=== PATIENT | male | born 1965 | race Caucasian/White ===

== ENCOUNTER 2022-02-26 07:32 | Inpatient (IN) | payer MEDICAID ==
[2022-02-26] MEDS ORDERED: Sodium Chloride 0.9% 10 ML Syringe FLUSH PRN (07:43)
[2022-02-26] MEDS ORDERED: Sodium Chloride 0.9% 1,000 ML IV SCH (07:45)
[2022-02-26 08:11] LABS: ESTIMATED GFR 104 mL/min (>60)
[2022-02-26] MEDS ORDERED: Albuterol/Ipratropium 3.0-0.5 MG/3 ML Neb Soln NEB ONE (08:49)
[2022-02-26] MEDS ORDERED: LORazepam 2 MG/ML SDV IVPUSH ONE (08:49)
[2022-02-26] MEDS ORDERED: methylPREDNISolone Sodium Succinate 125 MG/2 ML SDV IVPUSH STA (08:50)
[2022-02-26 08:58] LABS: CORONAVIRUS COVID-19 NAA NEGATIVE (NEGATIVE)
[2022-02-26] MEDS ORDERED: Ondansetron 4 MG/2 ML SDV IV PRN (10:16)
[2022-02-26] MEDS ORDERED: Acetaminophen 325 MG Tab PO PRN (10:16)
[2022-02-26] MEDS ORDERED: LORazepam 1 MG Tab PO SCH (10:29)
[2022-02-26] MEDS ORDERED: Thiamine 200 MG/2 ML MDV IVPUSH STA (10:35)
[2022-02-26] MEDS ORDERED: LORazepam 2 MG/ML SDV IV SCH (11:00)
[2022-02-26] MEDS: Sodium Chloride 0.9% 1,000 ML IV SCH ×2 (11:15→21:54)
[2022-02-26] MEDS: Enoxaparin 40 MG/0.4 ML Syringe SUBCUT SCH (11:46)
[2022-02-26] MEDS: Multivitamin Tab PO SCH (11:46)
[2022-02-26] MEDS: Pantoprazole 40 MG Vial IVPUSH SCH (15:01)
[2022-02-27 07:19] LABS: ESTIMATED GFR 100 mL/min (>60)
[2022-02-27] MEDS: Sodium Chloride 0.9% 1,000 ML IV SCH ×2 (08:08→18:25)
[2022-02-27] MEDS: Multivitamin Tab PO SCH (10:33)
[2022-02-27] MEDS: Losartan 25 MG Tab PO SCH ×2 (10:33→20:17)
[2022-02-27] MEDS: Enoxaparin 40 MG/0.4 ML Syringe SUBCUT SCH (10:35)
[2022-02-27] MEDS: Pantoprazole 40 MG Vial IVPUSH SCH (13:18)
[2022-02-28] MEDS: Sodium Chloride 0.9% 1,000 ML IV SCH ×2 (04:43→14:55)
[2022-02-28 06:48] LABS: ESTIMATED GFR 79 mL/min (>60)
[2022-02-28] MEDS: Losartan 25 MG Tab PO SCH (08:16)
[2022-02-28] MEDS: Multivitamin Tab PO SCH (08:16)
[2022-02-28] MEDS ORDERED: Albuterol/Ipratropium 3.0-0.5 MG/3 ML Neb Soln NEB PRN (09:19)
[2022-02-28] MEDS ORDERED: Iopamidol 755 Mg/ML 75 ML Bottle IV ONE (09:55)
[2022-02-28] MEDS: Potassium Chloride 20 MEQ Tab.ER PO SCH ×2 (10:00→20:15)
[2022-02-28] MEDS: Folic Acid/Vitamin B Complex With C Cap PO SCH (11:01)
[2022-02-28] MEDS: Enoxaparin 40 MG/0.4 ML Syringe SUBCUT SCH (11:02)
[2022-02-28] MEDS: Pantoprazole 40 MG Vial IVPUSH SCH (13:10)
[2022-03-01] MEDS: Sodium Chloride 0.9% 1,000 ML IV SCH (00:01)
[2022-03-01 07:02] LABS: ESTIMATED GFR 100 mL/min (>60)
[2022-03-01 07:12] LABS: HEMOGLOBIN A1C 5.5 % (<5.7)
[2022-03-01] MEDS: Potassium Chloride 20 MEQ Tab.ER PO SCH ×2 (08:53→20:06)
[2022-03-01] MEDS: Multivitamin Tab PO SCH (08:53)
[2022-03-01] MEDS: Enoxaparin 40 MG/0.4 ML Syringe SUBCUT SCH (10:23)
[2022-03-01] MEDS: Folic Acid/Vitamin B Complex With C Cap PO SCH (10:57)
[2022-03-01] MEDS: Pantoprazole 40 MG Tab.CR PO SCH (11:33)
[2022-03-02] MEDS: Levothyroxine 25 MCG Tab PO SCH (05:24)
[2022-03-02] MEDS ORDERED: Polyvinyl Alcohol 1.4% Ophth Soln 15 ML Bottle EYEBOTH PRN (09:35)
[2022-03-02] MEDS: Folic Acid/Vitamin B Complex With C Cap PO SCH (09:58)
[2022-03-02] MEDS: Potassium Chloride 20 MEQ Tab.ER PO SCH ×2 (09:58→20:24)
[2022-03-02] MEDS: Enoxaparin 40 MG/0.4 ML Syringe SUBCUT SCH (09:59)
[2022-03-02] MEDS: Multivitamin Tab PO SCH (09:59)
[2022-03-02] MEDS: Pantoprazole 40 MG Tab.CR PO SCH (12:45)
[2022-03-03] MEDS: Levothyroxine 25 MCG Tab PO SCH (05:02)
[2022-03-03] MEDS: Potassium Chloride 20 MEQ Tab.ER PO SCH ×2 (08:30→21:35)
[2022-03-03] MEDS: Folic Acid/Vitamin B Complex With C Cap PO SCH (08:31)
[2022-03-03] MEDS: Enoxaparin 40 MG/0.4 ML Syringe SUBCUT SCH (09:41)
[2022-03-03] MEDS: Pantoprazole 40 MG Tab.CR PO SCH (11:31)
[2022-03-04] MEDS: Levothyroxine 25 MCG Tab PO SCH (05:40)
[2022-03-04] MEDS: Potassium Chloride 20 MEQ Tab.ER PO SCH (08:25)
[2022-03-04] MEDS: Folic Acid/Vitamin B Complex With C Cap PO SCH (08:25)
[2022-03-04] MEDS: Pantoprazole 40 MG Tab.CR PO SCH (11:20)
[2022-03-04] MEDS: Enoxaparin 40 MG/0.4 ML Syringe SUBCUT SCH (11:20)
== END 2022-03-04 18:15 | disposition home or self-care (01) | DRG 392 ==
LOC: FB.ED 07:32 → FB.MS 10:47 → OBSVTOIN 03-01 10:34
PROVIDERS: ADMIT Student in an Organized Health Care Education/Training Program; ATTEND Family Medicine
DX: K52.9 Noninfective gastroenteritis and colitis, unspecified (principal); E87.1 Hypo-osmolality and hyponatremia; F10.929 Alcohol use, unspecified with intoxication, unspecified; Z20.822 Contact with and (suspected) exposure to COVID-19; E66.01 Morbid (severe) obesity due to excess calories; E87.6 Hypokalemia; I10 Essential (primary) hypertension; R74.8 Abnormal levels of other serum enzymes; Z79.890 Hormone replacement therapy; Z79.899 Other long term (current) drug therapy; Z87.01 Personal history of pneumonia (recurrent); Z86.19 Personal history of other infectious and parasitic diseases; Z68.39 Body mass index [BMI] 39.0-39.9, adult
CPT/HCPCS: 0241U; 36415; 70450; 71045; 71260; 80053; 80307; 83036; 83735; 83880; 84100; 84443; 84484; 85025; 85379; 85610; 90686; 93005; 94640; 96361; 96372; 96374; 96375; 96376; 97161-GP; 97165-GO; 97530-GO; 97530-GP; 99285-25; A9270-GY; C9113; G0378; J1650; J2060; J2930; J3411; J7030; J7620; Q9967

== ENCOUNTER 2022-07-01 16:05 | Emergency (ER) | payer MEDICAID ==
[2022-07-01] MEDS ORDERED: Ondansetron 4 MG Tab.DIS PO ONE (16:06)
[2022-07-01] MEDS ORDERED: Thiamine 200 MG/2 ML MDV IVPUSH ONE (16:35)
[2022-07-01] MEDS ORDERED: LORazepam 2 MG/ML SDV IVPUSH STA (16:36)
[2022-07-01] MEDS ORDERED: Ondansetron 4 MG/2 ML SDV IVPUSH ONE ×2 (16:36→19:17)
[2022-07-01] MEDS ORDERED: Sodium Chloride 0.9% 1,000 ML IV SCH (16:45)
[2022-07-01] MEDS ORDERED: Dextrose 5%-0.9% NaCl 1,000 ML IV SCH (16:45)
[2022-07-01] MEDS: Sodium Chloride 0.9% 10 ML Syringe FLUSH PRN ×5 (16:47→19:22)
[2022-07-01 17:13] LABS: ESTIMATED GFR 100 mL/min (>60)
[2022-07-01] MEDS ORDERED: Potassium Chloride 20 MEQ Tab.ER PO ONE (17:51)
[2022-07-01] MEDS ORDERED: Magnesium Sulfate/Water 2 GM in Premix Bag 1 BAG IV ONE (17:53)
[2022-07-01] MEDS ORDERED: Magnesium Sulfate/Water 50 ML ONE (18:16)
== END 2022-07-01 21:23 | disposition home or self-care (01) ==
LOC: FB.ED 16:05
DX: F10.20 Alcohol dependence, uncomplicated (principal); E87.6 Hypokalemia; E83.42 Hypomagnesemia; I10 Essential (primary) hypertension; Y90.0 Blood alcohol level of less than 20 mg/100 ml
CPT/HCPCS: 36415; 71045; 80053; 80307; 82150; 83690; 83735; 84100; 84132; 84443; 85025; 96361; 96365; 96366; 96375; 96376; 99284-25; A9270-GY; J2060; J2405; J3411; J3475; J3490; Q0162

== ENCOUNTER 2022-08-11 03:52 | Emergency (ER) | payer MEDICAID ==
[2022-08-11] MEDS: Sodium Chloride 0.9% 1,000 ML IV ONE (04:37)
[2022-08-11] MEDS: Ondansetron 4 MG/2 ML SDV IVPUSH ONE ×2 (04:39→09:43)
[2022-08-11 05:06] LABS: BLOOD UREA NITROGEN,BUN 11 mg/dL (7-18); CALCIUM 9.6 mg/dL (8.6-10.2); CARBON DIOXIDE,CO2 16 mmol/L (21-32); CHLORIDE,CL 96 mmol/L (100-110); CREATININE 1.1 mg/dL (0.70-1.30); ESTIMATED GFR 79 mL/min (>60); GLUCOSE RANDOM 137 mg/dL (80-116); POTASSIUM,K 3.8 mmol/L (3.5-5.3); SODIUM,NA 140 mmol/L (135-145)
[2022-08-11 05:09] LABS: BASOPHILS PERCENT AUTO 0.5 % (0.3-3.8); EOSINOPHILS PERCENT AUTO 0.2 % (0.1-6.8); HEMATOCRIT 40.6 % (38.3-50.1); HEMOGLOBIN 13.4 g/dL (12.9-17.7); LYMPHOCYTES ABSOLUTE AUTO 0.4 x10-3/uL (0.5-4.5); LYMPHOCYTES PERCENT AUTO 6.4 % (15.8-45.3); MEAN CORPUSCULAR HEMOGLOBIN 36.3 pg (27.0-33.3); MEAN CORPUSCULAR HGB CONC 32.9 g/dL (28.7-35.3); MEAN CORPUSCULAR VOLUME 110.3 fL (80.8-98.7); MEAN PLATELET VOLUME 8.6 fL (6.7-11.0); MONOCYTES ABSOLUTE AUTO 0.6 x10-3/uL (0.0-1.2); NEUTROPHILS ABSOLUTE AUTO 5.7 x10-3/uL (1.7-6.9); NEUTROPHILS PERCENT AUTO 83.9 % (40.3-71.8); PLATELET COUNT,PLT 111 x10(3)uL (117-477); RED BLOOD CELL COUNT 3.69 x10(6)uL (3.90-5.90); RED CELL DISTRIBUTION WIDTH 15.4 % (12.4-15.0); WHITE BLOOD CELL COUNT,WBC 6.8 x10-3/uL (3.2-10.1)
[2022-08-11 05:12] LABS: A/G RATIO 1.1; ALANINE AMINOTRANSFERASE,ALT 68 U/L (12-36); ALBUMIN 4.2 g/dL (3.5-5.2); ALKALINE PHOSPHATASE 113 IU/L (56-112); ASPARTATE AMNIOTRANSFERASE,AST 99 IU/L (5-25); BILIRUBIN TOTAL 1.5 mg/dL (0.1-1.3)
[2022-08-11] MEDS: Sodium Chloride 0.9% 1,000 ML IV SCH (06:46)
[2022-08-11] MEDS: LORazepam 2 MG/ML SDV IVPUSH ONE (06:59)
[2022-08-11] MEDS: Thiamine 200 MG/2 ML MDV IVPUSH ONE (06:59)
[2022-08-11] MEDS: Metoclopramide 10 MG/2 ML SDV IVPUSH ONE (07:03)
[2022-08-11] MEDS: Pantoprazole 40 MG Vial IVPUSH ONE (07:07)
== END 2022-08-11 10:20 | disposition home or self-care (01) ==
LOC: FB.ED 03:52
DX: K70.9 Alcoholic liver disease, unspecified (principal); F10.20 Alcohol dependence, uncomplicated; I10 Essential (primary) hypertension; Z79.899 Other long term (current) drug therapy
CPT/HCPCS: 36415; 80053; 80307; 83735; 85025; 96361; 96374; 96375; 96376; 99284; C9113; J2060; J2405; J2765; J3411; J7030

== ENCOUNTER 2022-12-09 19:53 | Inpatient (IN) | payer MEDICAID ==
[2022-12-09] MEDS ORDERED: Ondansetron 4 MG/2 ML SDV IVPUSH ONE (19:57)
[2022-12-09] MEDS ORDERED: Sodium Chloride 0.9% 1,000 ML IV SCH (20:00)
[2022-12-09] MEDS: fentaNYL 100 MCG/2 ML SDV IVPUSH PRN (20:22)
[2022-12-09 20:44] LABS: BASOPHILS PERCENT AUTO 0.2 % (0.3-3.8); EOSINOPHILS PERCENT AUTO 0.1 % (0.1-6.8); HEMATOCRIT 48.1 % (38.3-50.1); HEMOGLOBIN 15.9 g/dL (12.9-17.7); LYMPHOCYTES ABSOLUTE AUTO 0.2 x10-3/uL (0.5-4.5); LYMPHOCYTES PERCENT AUTO 2.6 % (15.8-45.3); MEAN CORPUSCULAR HEMOGLOBIN 32.9 pg (27.0-33.3); MEAN CORPUSCULAR HGB CONC 33.1 g/dL (28.7-35.3); MEAN CORPUSCULAR VOLUME 99.7 fL (80.8-98.7); MEAN PLATELET VOLUME 8.9 fL (6.7-11.0); MONOCYTES ABSOLUTE AUTO 0.8 x10-3/uL (0.0-1.2); MONOCYTES PERCENT AUTO 11.4 % (5.5-15.2); NEUTROPHILS PERCENT AUTO 85.7 % (40.3-71.8); PLATELET COUNT,PLT 126 x10(3)uL (117-477); RED BLOOD CELL COUNT 4.82 x10(6)uL (3.90-5.90); WHITE BLOOD CELL COUNT,WBC 7.6 x10-3/uL (3.2-10.1)
[2022-12-09 20:52] LABS: TROPONIN I 13.9 pg/mL (4.0-60.3)
[2022-12-09] MEDS ORDERED: Iopamidol 755 Mg/ML 100 ML Bottle IV ONE (20:52)
[2022-12-09 20:54] LABS: A/G RATIO 0.9; ALANINE AMINOTRANSFERASE,ALT 63 U/L (12-36); ALBUMIN 3.9 g/dL (3.5-5.2); ALKALINE PHOSPHATASE 122 IU/L (56-112); ASPARTATE AMNIOTRANSFERASE,AST 95 IU/L (5-25); BILIRUBIN TOTAL 1.5 mg/dL (0.1-1.3); CALCIUM 9.4 mg/dL (8.6-10.2); CHLORIDE,CL 91 mmol/L (100-110); EST CRCL DRUG DOSING (CG) 33.66 mL/min; ESTIMATED GFR 29 mL/min (>60); GLUCOSE RANDOM 256 mg/dL (80-116); POTASSIUM,K 4.5 mmol/L (3.5-5.3); PROTEIN TOTAL,TP 8.1 g/dL (6.0-8.0); SODIUM,NA 131 mmol/L (135-145)
[2022-12-09 21:14] LABS: BLOOD UREA NITROGEN,BUN 11 mg/dL (7-18); BUN/CREATININE RATIO 4.4 (9-20); CARBON DIOXIDE,CO2 7 mmol/L (21-32); CREATININE 2.5 mg/dL (0.70-1.30); ETHANOL BLOOD MEDICAL < 0.03 % (<0.03); LIPASE > 1500 U/L (16-77)
[2022-12-09] MEDS ORDERED: HYDROmorphone 2 MG/ML SDV IVPUSH ONE (21:14)
[2022-12-09] MEDS: HYDROmorphone 2 MG/ML SDV IVPUSH ONE ×2 (21:19→21:33)
[2022-12-09] MEDS ORDERED: Naloxone 0.4 MG/ML SDV IVPUSH PRN (21:34)
[2022-12-09] MEDS ORDERED: Albuterol/Ipratropium 3.0-0.5 MG/3 ML Neb Soln INH PRN (22:14)
[2022-12-09] MEDS ORDERED: LORazepam 2 MG/ML SDV IVPUSH PRN (22:14)
[2022-12-09] MEDS ORDERED: Ondansetron 4 MG/2 ML SDV IV PRN (22:14)
[2022-12-09] MEDS ORDERED: Thiamine 200 MG/2 ML MDV IVPUSH ONE (22:14)
[2022-12-09] MEDS ORDERED: Enoxaparin 40 MG/0.4 ML Syringe SUBCUT SCH (22:15)
[2022-12-09] MEDS: Sodium Chloride 0.9% 1,000 ML IV SCH (22:52)
[2022-12-09] MEDS: Pantoprazole 40 MG Vial IVPUSH SCH (22:53)
[2022-12-09] MEDS: HYDROmorphone 2 MG/ML SDV IVPUSH PRN (23:24)
[2022-12-10] MEDS: HYDROmorphone 2 MG/ML SDV IVPUSH PRN ×5 (02:05→21:11)
[2022-12-10] MEDS: Sodium Chloride 0.9% 1,000 ML IV SCH ×4 (05:41→20:46)
[2022-12-10 06:29] LABS: HEMATOCRIT 44.5 % (38.3-50.1); HEMOGLOBIN 14.8 g/dL (12.9-17.7); MEAN CORPUSCULAR HEMOGLOBIN 32.3 pg (27.0-33.3); MEAN CORPUSCULAR HGB CONC 33.2 g/dL (28.7-35.3); MEAN CORPUSCULAR VOLUME 97.3 fL (80.8-98.7); MEAN PLATELET VOLUME 8.9 fL (6.7-11.0); PLATELET COUNT,PLT 92 x10(3)uL (117-477); RED BLOOD CELL COUNT 4.58 x10(6)uL (3.90-5.90); RED CELL DISTRIBUTION WIDTH 14.5 % (12.4-15.0); WHITE BLOOD CELL COUNT,WBC 5.2 x10-3/uL (3.2-10.1)
[2022-12-10 06:38] LABS: A/G RATIO 0.9; ALANINE AMINOTRANSFERASE,ALT 55 U/L (12-36); ALBUMIN 3.3 g/dL (3.5-5.2); ALKALINE PHOSPHATASE 98 IU/L (56-112); ASPARTATE AMNIOTRANSFERASE,AST 103 IU/L (5-25); BILIRUBIN TOTAL 1.7 mg/dL (0.1-1.3); BLOOD UREA NITROGEN,BUN 16 mg/dL (7-18); BUN/CREATININE RATIO 5.2 (9-20); CARBON DIOXIDE,CO2 18 mmol/L (21-32); CHLORIDE,CL 97 mmol/L (100-110); EST CRCL DRUG DOSING (CG) 27.15 mL/min; ESTIMATED GFR 23 mL/min (>60); GLUCOSE RANDOM 332 mg/dL (80-116); MAGNESIUM 1.4 mg/dL (1.8-2.5); POTASSIUM,K 4.9 mmol/L (3.5-5.3); PROTEIN TOTAL,TP 6.8 g/dL (6.0-8.0); SODIUM,NA 132 mmol/L (135-145)
[2022-12-10 06:41] LABS: CREATININE 3.1 mg/dL (0.70-1.30)
[2022-12-10 07:07] LABS: BAND PERCENT MAN 4 % (0-6); LYMPHOCYTES PERCENT MAN 3 % (13-37); MONOCYTES PERCENT MAN 9 % (4-12); SEG NEUTROPHILS PERCENT MAN 84 % (46-82)
[2022-12-10] MEDS: Pantoprazole 40 MG Vial IVPUSH SCH ×2 (10:11→21:17)
[2022-12-10] MEDS ORDERED: Enoxaparin 30 MG/0.3 ML Syringe SUBCUT SCH (21:30)
[2022-12-11] MEDS: Sodium Chloride 0.9% 1,000 ML IV SCH ×5 (00:54→21:24)
[2022-12-11] MEDS: fentaNYL 100 MCG/2 ML SDV IVPUSH PRN ×2 (00:55→06:41)
[2022-12-11] MEDS: HYDROmorphone 2 MG/ML SDV IVPUSH PRN (02:44)
[2022-12-11 06:21] LABS: HEMOGLOBIN 13.7 g/dL (12.9-17.7); MEAN CORPUSCULAR HEMOGLOBIN 32.4 pg (27.0-33.3); MEAN CORPUSCULAR HGB CONC 33.3 g/dL (28.7-35.3); MEAN CORPUSCULAR VOLUME 97.4 fL (80.8-98.7); MEAN PLATELET VOLUME 9.9 fL (6.7-11.0); PLATELET COUNT,PLT 68 x10(3)uL (117-477); RED BLOOD CELL COUNT 4.21 x10(6)uL (3.90-5.90); RED CELL DISTRIBUTION WIDTH 15.2 % (12.4-15.0)
[2022-12-11 06:33] LABS: A/G RATIO 0.8; ALANINE AMINOTRANSFERASE,ALT 42 U/L (12-36); ALBUMIN 2.8 g/dL (3.5-5.2); ALKALINE PHOSPHATASE 88 IU/L (56-112); ASPARTATE AMNIOTRANSFERASE,AST 73 IU/L (5-25); BILIRUBIN TOTAL 1.3 mg/dL (0.1-1.3); BLOOD UREA NITROGEN,BUN 21 mg/dL (7-18); BUN/CREATININE RATIO 10.5 (9-20); CALCIUM 8.2 mg/dL (8.6-10.2); CARBON DIOXIDE,CO2 19 mmol/L (21-32); CHLORIDE,CL 103 mmol/L (100-110); EST CRCL DRUG DOSING (CG) 42.08 mL/min; ESTIMATED GFR 38 mL/min (>60); GLUCOSE RANDOM 267 mg/dL (80-116); POTASSIUM,K 4.2 mmol/L (3.5-5.3); PROTEIN TOTAL,TP 6.3 g/dL (6.0-8.0); SODIUM,NA 137 mmol/L (135-145)
[2022-12-11 06:36] LABS: BAND PERCENT MAN 10 % (0-6); LYMPHOCYTES PERCENT MAN 14 % (13-37); MONOCYTES PERCENT MAN 8 % (4-12); SEG NEUTROPHILS PERCENT MAN 68 % (46-82)
[2022-12-11] MEDS ORDERED: HYDROmorphone 2 MG Tab PO PRN (08:01)
[2022-12-11] MEDS ORDERED: oxyCODONE 5 MG Tab PO SCH (08:30)
[2022-12-11] MEDS: Pantoprazole 40 MG Vial IVPUSH SCH ×2 (10:24→21:18)
[2022-12-11] MEDS: oxyCODONE 5 MG Tab PO SCH ×3 (13:19→21:17)
[2022-12-12] MEDS: oxyCODONE 5 MG Tab PO SCH ×4 (00:43→15:00)
[2022-12-12] MEDS: Sodium Chloride 0.9% 1,000 ML IV SCH ×2 (04:46→17:17)
[2022-12-12 06:22] LABS: BASOPHILS PERCENT AUTO 0.1 % (0.3-3.8); EOSINOPHILS ABSOLUTE AUTO 0.1 x10-3/uL (0.0-0.6); EOSINOPHILS PERCENT AUTO 0.8 % (0.1-6.8); HEMATOCRIT 36.7 % (38.3-50.1); HEMOGLOBIN 12.3 g/dL (12.9-17.7); LYMPHOCYTES ABSOLUTE AUTO 0.5 x10-3/uL (0.5-4.5); LYMPHOCYTES PERCENT AUTO 6.8 % (15.8-45.3); MEAN CORPUSCULAR HEMOGLOBIN 32.2 pg (27.0-33.3); MEAN CORPUSCULAR HGB CONC 33.4 g/dL (28.7-35.3); MEAN CORPUSCULAR VOLUME 96.3 fL (80.8-98.7); MEAN PLATELET VOLUME 9.1 fL (6.7-11.0); MONOCYTES ABSOLUTE AUTO 0.6 x10-3/uL (0.0-1.2); MONOCYTES PERCENT AUTO 9.7 % (5.5-15.2); NEUTROPHILS ABSOLUTE AUTO 5.5 x10-3/uL (1.7-6.9); NEUTROPHILS PERCENT AUTO 82.6 % (40.3-71.8); PLATELET COUNT,PLT 81 x10(3)uL (117-477); RED BLOOD CELL COUNT 3.81 x10(6)uL (3.90-5.90); WHITE BLOOD CELL COUNT,WBC 6.6 x10-3/uL (3.2-10.1)
[2022-12-12 06:32] LABS: A/G RATIO 0.7; ALANINE AMINOTRANSFERASE,ALT 40 U/L (12-36); ALBUMIN 2.6 g/dL (3.5-5.2); ALKALINE PHOSPHATASE 88 IU/L (56-112); ASPARTATE AMNIOTRANSFERASE,AST 46 IU/L (5-25); BILIRUBIN TOTAL 1.4 mg/dL (0.1-1.3); BLOOD UREA NITROGEN,BUN 17 mg/dL (7-18); BUN/CREATININE RATIO 13.1 (9-20); CARBON DIOXIDE,CO2 21 mmol/L (21-32); CHLORIDE,CL 101 mmol/L (100-110); CREATININE 1.3 mg/dL (0.70-1.30); EST CRCL DRUG DOSING (CG) 64.73 mL/min; ESTIMATED GFR 64 mL/min (>60); GLUCOSE RANDOM 229 mg/dL (80-116); POTASSIUM,K 3.7 mmol/L (3.5-5.3); PROTEIN TOTAL,TP 6.1 g/dL (6.0-8.0); SODIUM,NA 134 mmol/L (135-145)
[2022-12-12] MEDS ORDERED: Sodium Chloride 0.9% 1,000 ML IV SCH (08:00)
[2022-12-12] MEDS ORDERED: Sodium Chloride 0.9% 1,000 ML IV ONE (09:55)
[2022-12-12] MEDS: Pantoprazole 40 MG Vial IVPUSH SCH ×2 (11:18→22:05)
[2022-12-12] MEDS: oxyCODONE 5 MG Tab PO PRN ×2 (15:18→20:51)
[2022-12-13] MEDS: Sodium Chloride 0.9% 1,000 ML IV SCH (00:20)
[2022-12-13] MEDS ORDERED: Furosemide 40 MG/4 ML VIAL IVPUSH ONE (02:30)
[2022-12-13] MEDS: oxyCODONE 5 MG Tab PO PRN ×4 (02:40→19:06)
[2022-12-13 06:43] LABS: BASOPHILS PERCENT AUTO 0.2 % (0.3-3.8); EOSINOPHILS ABSOLUTE AUTO 0.1 x10-3/uL (0.0-0.6); EOSINOPHILS PERCENT AUTO 1.6 % (0.1-6.8); HEMATOCRIT 36.1 % (38.3-50.1); HEMOGLOBIN 12.1 g/dL (12.9-17.7); LYMPHOCYTES ABSOLUTE AUTO 0.5 x10-3/uL (0.5-4.5); LYMPHOCYTES PERCENT AUTO 8.2 % (15.8-45.3); MEAN CORPUSCULAR HEMOGLOBIN 31.9 pg (27.0-33.3); MEAN CORPUSCULAR HGB CONC 33.4 g/dL (28.7-35.3); MEAN CORPUSCULAR VOLUME 95.6 fL (80.8-98.7); MONOCYTES ABSOLUTE AUTO 1.1 x10-3/uL (0.0-1.2); MONOCYTES PERCENT AUTO 19.4 % (5.5-15.2); NEUTROPHILS PERCENT AUTO 70.6 % (40.3-71.8); PLATELET COUNT,PLT 94 x10(3)uL (117-477); RED BLOOD CELL COUNT 3.78 x10(6)uL (3.90-5.90); RED CELL DISTRIBUTION WIDTH 15.4 % (12.4-15.0); WHITE BLOOD CELL COUNT,WBC 5.7 x10-3/uL (3.2-10.1)
[2022-12-13 06:59] LABS: A/G RATIO 0.7; ALANINE AMINOTRANSFERASE,ALT 37 U/L (12-36); ALBUMIN 2.6 g/dL (3.5-5.2); ALKALINE PHOSPHATASE 94 IU/L (56-112); ASPARTATE AMNIOTRANSFERASE,AST 46 IU/L (5-25); BILIRUBIN TOTAL 2.7 mg/dL (0.1-1.3); BLOOD UREA NITROGEN,BUN 12 mg/dL (7-18); CALCIUM 8.4 mg/dL (8.6-10.2); CARBON DIOXIDE,CO2 24 mmol/L (21-32); CHLORIDE,CL 97 mmol/L (100-110); CHOLESTEROL HDL 16 mg/dL (40-75); CHOLESTEROL LDL DIRECT 88 mg/dL (60-130); CHOLESTEROL TOTAL 144 mg/dL (50-200); CREATININE 1.2 mg/dL (0.70-1.30); EST CRCL DRUG DOSING (CG) 70.13 mL/min; ESTIMATED GFR 71 mL/min (>60); GLUCOSE RANDOM 311 mg/dL (80-116); POTASSIUM,K 3.3 mmol/L (3.5-5.3); PROTEIN TOTAL,TP 6.5 g/dL (6.0-8.0); SODIUM,NA 133 mmol/L (135-145); TRIGLYCERIDES 112 mg/dL (25-150)
[2022-12-13] MEDS: Lisinopril 10 MG Tab PO SCH (08:41)
[2022-12-13 08:44] LABS: HEMOGLOBIN A1C 5.5 % (<5.7)
[2022-12-13] MEDS: Sodium Chloride 0.9% 10 ML Syringe FLUSH PRN ×3 (10:45→21:46)
[2022-12-13] MEDS: Pantoprazole 40 MG Vial IVPUSH SCH ×2 (10:49→21:41)
[2022-12-14] MEDS: oxyCODONE 5 MG Tab PO PRN ×4 (01:09→18:19)
[2022-12-14] MEDS: Lisinopril 10 MG Tab PO SCH (08:32)
[2022-12-14] MEDS ORDERED: FLU (Flulaval Quad) 2023-24(6MOS UP)/PF 60 MCG/0.5 ML Syringe IM ONE (09:00)
[2022-12-14] MEDS: Pantoprazole 40 MG Vial IVPUSH SCH (10:25)
[2022-12-14] MEDS: Sodium Chloride 0.9% 10 ML Syringe FLUSH PRN (10:35)
[2022-12-14] MEDS: Pantoprazole 40 MG Tab.CR PO SCH (18:19)
[2022-12-15] MEDS: oxyCODONE 5 MG Tab PO PRN ×5 (01:51→21:13)
[2022-12-15 06:30] LABS: BASOPHILS PERCENT AUTO 0.3 % (0.3-3.8); EOSINOPHILS ABSOLUTE AUTO 0.1 x10-3/uL (0.0-0.6); EOSINOPHILS PERCENT AUTO 1.4 % (0.1-6.8); HEMATOCRIT 35.8 % (38.3-50.1); HEMOGLOBIN 12.2 g/dL (12.9-17.7); LYMPHOCYTES ABSOLUTE AUTO 0.6 x10-3/uL (0.5-4.5); MEAN CORPUSCULAR HGB CONC 34.1 g/dL (28.7-35.3); MEAN CORPUSCULAR VOLUME 93.9 fL (80.8-98.7); MEAN PLATELET VOLUME 9.2 fL (6.7-11.0); MONOCYTES ABSOLUTE AUTO 1.2 x10-3/uL (0.0-1.2); MONOCYTES PERCENT AUTO 16.6 % (5.5-15.2); NEUTROPHILS ABSOLUTE AUTO 5.3 x10-3/uL (1.7-6.9); NEUTROPHILS PERCENT AUTO 73.7 % (40.3-71.8); PLATELET COUNT,PLT 164 x10(3)uL (117-477); RED BLOOD CELL COUNT 3.81 x10(6)uL (3.90-5.90); RED CELL DISTRIBUTION WIDTH 14.3 % (12.4-15.0); WHITE BLOOD CELL COUNT,WBC 7.3 x10-3/uL (3.2-10.1)
[2022-12-15 06:50] LABS: A/G RATIO 0.6; ALANINE AMINOTRANSFERASE,ALT 96 U/L (12-36); ALBUMIN 2.3 g/dL (3.5-5.2); ALKALINE PHOSPHATASE 188 IU/L (56-112); BILIRUBIN TOTAL 7.8 mg/dL (0.1-1.3); BLOOD UREA NITROGEN,BUN 9 mg/dL (7-18); CALCIUM 8.7 mg/dL (8.6-10.2); CARBON DIOXIDE,CO2 30 mmol/L (21-32); CHLORIDE,CL 94 mmol/L (100-110); EST CRCL DRUG DOSING (CG) 84.15 mL/min; ESTIMATED GFR 88 mL/min (>60); GLUCOSE RANDOM 397 mg/dL (80-116); PROTEIN TOTAL,TP 5.9 g/dL (6.0-8.0); SODIUM,NA 133 mmol/L (135-145)
[2022-12-15 06:54] LABS: ASPARTATE AMNIOTRANSFERASE,AST 176 IU/L (5-25)
[2022-12-15] MEDS: Pantoprazole 40 MG Tab.CR PO SCH ×2 (07:00→17:43)
[2022-12-15] MEDS: Lisinopril 10 MG Tab PO SCH (09:44)
[2022-12-15] MEDS ORDERED: Iopamidol 755 Mg/ML 200 ML Bottle IV ONE (09:46)
[2022-12-15 11:20] LABS: BILIRUBIN DIRECT 6.17 mg/dL (0.10-0.20); BILIRUBIN INDIRECT 1.6 mg/dL (0.0-1.0); BILIRUBIN TOTAL 7.8 mg/dL (0.1-1.3)
[2022-12-15] MEDS: Potassium Chloride 20 MEQ Tab.ER PO SCH ×2 (12:26→21:11)
[2022-12-15] MEDS ORDERED: Lisinopril 10 MG Tab PO ONE (12:30)
[2022-12-15] MEDS ORDERED: Lactated Ringers 1,000 ML IV SCH (13:15)
[2022-12-15 14:29] LABS: INR 1.28 (1.00-1.24); PROTHROMBIN TIME 13.1 sec (9.0-11.1)
[2022-12-15] MEDS ORDERED: predniSONE 20 MG Tab PO ONE (17:54)
[2022-12-15] MEDS: Lactated Ringers 1,000 ML IV SCH (20:26)
[2022-12-15] MEDS: Magnesium Chloride 64 MG Tab.ER PO SCH (21:12)
[2022-12-15 21:35] LABS: ALBUMIN - MG/DL 1.2 mg/dL; ALBUMIN/CREATININE RATIO 32 mg/g (0-30); CREATININE,URINE - PER VOLUME 37 mg/dL; HOURS COLLECTED Random hr; TOTAL VOLUME Random mL
[2022-12-16] MEDS: oxyCODONE 5 MG Tab PO PRN ×4 (02:34→21:01)
[2022-12-16] MEDS: Lactated Ringers 1,000 ML IV SCH ×2 (04:41→13:39)
[2022-12-16 06:44] LABS: HEMATOCRIT 37.2 % (38.3-50.1); HEMOGLOBIN 12.7 g/dL (12.9-17.7); MEAN CORPUSCULAR HEMOGLOBIN 32.2 pg (27.0-33.3); MEAN CORPUSCULAR HGB CONC 34.2 g/dL (28.7-35.3); MEAN CORPUSCULAR VOLUME 94.3 fL (80.8-98.7); MEAN PLATELET VOLUME 9.6 fL (6.7-11.0); PLATELET COUNT,PLT 217 x10(3)uL (117-477); RED BLOOD CELL COUNT 3.95 x10(6)uL (3.90-5.90); RED CELL DISTRIBUTION WIDTH 14.7 % (12.4-15.0); WHITE BLOOD CELL COUNT,WBC 8.1 x10-3/uL (3.2-10.1)
[2022-12-16 06:47] LABS: INR 1.25 (1.00-1.24); PROTHROMBIN TIME 12.8 sec (9.0-11.1)
[2022-12-16 06:51] LABS: A/G RATIO 0.6; ALANINE AMINOTRANSFERASE,ALT 85 U/L (12-36); ALBUMIN 2.3 g/dL (3.5-5.2); ALKALINE PHOSPHATASE 249 IU/L (56-112); ASPARTATE AMNIOTRANSFERASE,AST 88 IU/L (5-25); BILIRUBIN TOTAL 3.2 mg/dL (0.1-1.3); BLOOD UREA NITROGEN,BUN 11 mg/dL (7-18); CALCIUM 8.7 mg/dL (8.6-10.2); CARBON DIOXIDE,CO2 30 mmol/L (21-32); CHLORIDE,CL 96 mmol/L (100-110); CREATININE 1.1 mg/dL (0.70-1.30); ESTIMATED GFR 78 mL/min (>60); GLUCOSE RANDOM 378 mg/dL (80-116); PROTEIN TOTAL,TP 6.1 g/dL (6.0-8.0); SODIUM,NA 135 mmol/L (135-145)
[2022-12-16 07:19] LABS: BAND PERCENT MAN 2 % (0-6); LYMPHOCYTES PERCENT MAN 5 % (13-37); MONOCYTES PERCENT MAN 2 % (4-12); SEG NEUTROPHILS PERCENT MAN 91 % (46-82)
[2022-12-16] MEDS: Lisinopril 20 MG Tab PO SCH (08:12)
[2022-12-16] MEDS: Magnesium Chloride 64 MG Tab.ER PO SCH ×2 (08:12→20:54)
[2022-12-16] MEDS: Potassium Chloride 20 MEQ Tab.ER PO SCH ×2 (08:12→09:10)
[2022-12-16] MEDS: Pantoprazole 40 MG Tab.CR PO SCH ×2 (08:12→16:46)
[2022-12-16] MEDS: metFORMIN 500 MG Tab.ER PO SCH (17:55)
[2022-12-16 18:28] LABS: BILIRUBIN,URINE NEGATIVE (NEGATIVE); GLUCOSE,URINE >1000 mg/dL (NORMAL); KETONES,URINE 15 mg/dL (NEGATIVE); LEUKOCYTE ESTERASE,URINE NEGATIVE (NEGATIVE); NITRITE,URINE NEGATIVE (NEGATIVE); OCCULT BLOOD,URINE NEGATIVE (NEGATIVE); PROTEIN,URINE NEGATIVE (NEGATIVE); UROBILINOGEN,URINE NORMAL (NEGATIVE)
[2022-12-16 18:31] LABS: APPEARANCE,URINE CLEAR (CLEAR); BACTERIA,URINE RARE (NS); COLOR,URINE YELLOW (YELLOW); RBC,URINE 0-5 (0-5); SQUAMOUS EPITHELIAL CELLS,UR OCCASIONAL (NS,R,O); WBC,URINE 0-5 (0-5); YEAST,URINE FEW (NS)
[2022-12-17] MEDS: oxyCODONE 5 MG Tab PO PRN ×5 (01:24→19:59)
[2022-12-17] MEDS: Pantoprazole 40 MG Tab.CR PO SCH ×2 (05:56→17:30)
[2022-12-17 06:40] LABS: ALBUMIN 2.2 g/dL (3.5-5.2); BILIRUBIN DIRECT 1.52 mg/dL (0.10-0.20); BILIRUBIN TOTAL 2.5 mg/dL (0.1-1.3); MAGNESIUM 1.3 mg/dL (1.8-2.5); PROTEIN TOTAL,TP 5.4 g/dL (6.0-8.0)
[2022-12-17] MEDS: Magnesium Chloride 64 MG Tab.ER PO SCH ×2 (09:12→20:02)
[2022-12-17] MEDS: metFORMIN 500 MG Tab.ER PO SCH ×2 (09:13→17:30)
[2022-12-17] MEDS: Potassium Chloride 20 MEQ Tab.ER PO SCH (09:13)
[2022-12-17] MEDS: Lisinopril 20 MG Tab PO SCH (09:13)
[2022-12-18] MEDS: oxyCODONE 5 MG Tab PO PRN ×3 (01:13→12:15)
[2022-12-18] MEDS: Pantoprazole 40 MG Tab.CR PO SCH (05:13)
[2022-12-18] MEDS: metFORMIN 500 MG Tab.ER PO SCH (09:31)
[2022-12-18] MEDS: Lisinopril 20 MG Tab PO SCH (09:32)
[2022-12-18] MEDS: Potassium Chloride 20 MEQ Tab.ER PO SCH (09:32)
[2022-12-18] MEDS: Magnesium Chloride 64 MG Tab.ER PO SCH (09:32)
== END 2022-12-18 13:53 | disposition home or self-care (01) | DRG 682 ==
LOC: FB.ED 19:53 → FB.MS 23:55
PROVIDERS: ADMIT Family Medicine; ATTEND Family Medicine
DX: N17.9 Acute kidney failure, unspecified (principal); K85.21 Alcohol induced acute pancreatitis with uninfected necrosis; E87.1 Hypo-osmolality and hyponatremia; Z51.5 Encounter for palliative care; K70.9 Alcoholic liver disease, unspecified; F10.229 Alcohol dependence with intoxication, unspecified; E66.01 Morbid (severe) obesity due to excess calories; D69.6 Thrombocytopenia, unspecified; D64.9 Anemia, unspecified; E83.51 Hypocalcemia; I10 Essential (primary) hypertension; R73.9 Hyperglycemia, unspecified; K70.10 Alcoholic hepatitis without ascites; E83.42 Hypomagnesemia; E87.6 Hypokalemia; Z79.899 Other long term (current) drug therapy; Z87.01 Personal history of pneumonia (recurrent); Z68.39 Body mass index [BMI] 39.0-39.9, adult
CPT/HCPCS: 36415; 51702; 71046; 74177; 76705; 80053; 80061; 80076; 80307; 81001; 82043; 82247; 82248; 82570; 83036; 83690; 83735; 83880; 84484; 85025; 85610; 90686; 94150; 94640; 96361; 96374; 96375; 97161-GP; 97165-GO; 97530-GO; 99222; 99231; 99232; 99238; 99285; 99285-25; A9270-GY; C9113; G0008; J1170; J1650; J1940; J2060; J2405; J3010; J3411; J3490; J7030; J7120; J7512; J7620; Q9967

== ENCOUNTER 2022-12-22 12:24 | Emergency (ER) | payer SELFPAY ==
[2022-12-22 14:03] LABS: BASOPHILS ABSOLUTE AUTO 0.1 x10-3/uL (0.0-0.3); BASOPHILS PERCENT AUTO 1.2 % (0.3-3.8); EOSINOPHILS ABSOLUTE AUTO 0.1 x10-3/uL (0.0-0.6); EOSINOPHILS PERCENT AUTO 1.6 % (0.1-6.8); HEMATOCRIT 31.1 % (38.3-50.1); HEMOGLOBIN 10.6 g/dL (12.9-17.7); LYMPHOCYTES ABSOLUTE AUTO 1.1 x10-3/uL (0.5-4.5); LYMPHOCYTES PERCENT AUTO 12.6 % (15.8-45.3); MEAN CORPUSCULAR HEMOGLOBIN 32.2 pg (27.0-33.3); MEAN CORPUSCULAR HGB CONC 34.1 g/dL (28.7-35.3); MEAN CORPUSCULAR VOLUME 94.3 fL (80.8-98.7); MEAN PLATELET VOLUME 9.3 fL (6.7-11.0); MONOCYTES ABSOLUTE AUTO 0.6 x10-3/uL (0.0-1.2); MONOCYTES PERCENT AUTO 7.2 % (5.5-15.2); NEUTROPHILS ABSOLUTE AUTO 6.7 x10-3/uL (1.7-6.9); NEUTROPHILS PERCENT AUTO 77.4 % (40.3-71.8); PLATELET COUNT,PLT 320 x10(3)uL (117-477); RED BLOOD CELL COUNT 3.29 x10(6)uL (3.90-5.90); RED CELL DISTRIBUTION WIDTH 13.8 % (12.4-15.0); WHITE BLOOD CELL COUNT,WBC 8.7 x10-3/uL (3.2-10.1)
[2022-12-22 14:10] LABS: BLOOD UREA NITROGEN,BUN 6 mg/dL (7-18); BUN/CREATININE RATIO 5.5 (9-20); CALCIUM 8.3 mg/dL (8.6-10.2); CARBON DIOXIDE,CO2 28 mmol/L (21-32); CHLORIDE,CL 99 mmol/L (100-110); CREATININE 1.1 mg/dL (0.70-1.30); ESTIMATED GFR 78 mL/min (>60); GLUCOSE RANDOM 329 mg/dL (80-116); POTASSIUM,K 3.3 mmol/L (3.5-5.3); SODIUM,NA 135 mmol/L (135-145)
[2022-12-22 14:16] LABS: A/G RATIO 0.7; ALANINE AMINOTRANSFERASE,ALT 42 U/L (12-36); ALBUMIN 2.3 g/dL (3.5-5.2); ALKALINE PHOSPHATASE 161 IU/L (56-112); ASPARTATE AMNIOTRANSFERASE,AST 40 IU/L (5-25); BILIRUBIN TOTAL 1.5 mg/dL (0.1-1.3); PROTEIN TOTAL,TP 5.8 g/dL (6.0-8.0)
[2022-12-22] MEDS ORDERED: Sodium Chloride 0.9% 10 ML Syringe FLUSH PRN (14:31)
[2022-12-22] MEDS ORDERED: Magnesium Sulfate/Water 2 GM in Premix Bag 1 BAG IV ONE (14:32)
[2022-12-22] MEDS ORDERED: Magnesium Oxide 400 MG Tab PO ONE (14:32)
[2022-12-22] MEDS ORDERED: Potassium Chloride 20 MEQ Tab.ER PO ONE (14:32)
[2022-12-25 04:01] LABS: C. DIFF TOXIN B GENE TCDB,PCR Not Detected
== END 2022-12-22 17:10 | disposition home or self-care (01) ==
LOC: FB.ED 12:24
DX: A04.72 Enterocolitis due to Clostridium difficile, not specified as recurrent (principal); E83.42 Hypomagnesemia; R73.9 Hyperglycemia, unspecified; I10 Essential (primary) hypertension; Z79.899 Other long term (current) drug therapy
CPT/HCPCS: 36415; 80053; 82270; 82947; 83690; 83735; 85025; 87230; 87493; 96365; 96366; 99283; 99284; A9270; J3475; J3490

== ENCOUNTER 2023-01-12 13:17 | Emergency (ER) | payer SELFPAY ==
[2023-01-12] MEDS ORDERED: Sodium Chloride 0.9% 10 ML Syringe FLUSH PRN (14:11)
[2023-01-12] MEDS ORDERED: Sodium Chloride 0.9% 1,000 ML IV SCH (14:15)
[2023-01-12] MEDS ORDERED: Insulin Lispro 100 Unit/ML 3 ML KwikPen SUBCUT STA (14:16)
[2023-01-12] MEDS ORDERED: 50% Dextrose in Water 50 ML Syringe IVPUSH PRN (14:16)
[2023-01-12] MEDS ORDERED: Glucagon,Human Recombinant 1 MG Vial IM PRN (14:16)
[2023-01-12 14:35] LABS: BASOPHILS PERCENT AUTO 0.6 % (0.3-3.8); EOSINOPHILS ABSOLUTE AUTO 0.2 x10-3/uL (0.0-0.6); EOSINOPHILS PERCENT AUTO 2.3 % (0.1-6.8); HEMATOCRIT 38.3 % (38.3-50.1); HEMOGLOBIN 12.9 g/dL (12.9-17.7); LYMPHOCYTES ABSOLUTE AUTO 2.1 x10-3/uL (0.5-4.5); LYMPHOCYTES PERCENT AUTO 30.1 % (15.8-45.3); MEAN CORPUSCULAR HEMOGLOBIN 31.2 pg (27.0-33.3); MEAN CORPUSCULAR HGB CONC 33.8 g/dL (28.7-35.3); MEAN CORPUSCULAR VOLUME 92.2 fL (80.8-98.7); MEAN PLATELET VOLUME 10.4 fL (6.7-11.0); MONOCYTES ABSOLUTE AUTO 0.5 x10-3/uL (0.0-1.2); MONOCYTES PERCENT AUTO 7.4 % (5.5-15.2); NEUTROPHILS ABSOLUTE AUTO 4.1 x10-3/uL (1.7-6.9); NEUTROPHILS PERCENT AUTO 59.6 % (40.3-71.8); PLATELET COUNT,PLT 284 x10(3)uL (117-477); RED BLOOD CELL COUNT 4.15 x10(6)uL (3.90-5.90); RED CELL DISTRIBUTION WIDTH 13.4 % (12.4-15.0); WHITE BLOOD CELL COUNT,WBC 6.9 x10-3/uL (3.2-10.1)
[2023-01-12 14:47] LABS: A/G RATIO 0.9; ALANINE AMINOTRANSFERASE,ALT 37 U/L (12-36); ALBUMIN 3.6 g/dL (3.5-5.2); ALKALINE PHOSPHATASE 121 IU/L (56-112); ASPARTATE AMNIOTRANSFERASE,AST 21 IU/L (5-25); BILIRUBIN TOTAL 0.9 mg/dL (0.1-1.3); BLOOD UREA NITROGEN,BUN 16 mg/dL (7-18); BUN/CREATININE RATIO 14.5 (9-20); CALCIUM 9.6 mg/dL (8.6-10.2); CARBON DIOXIDE,CO2 28 mmol/L (21-32); CHLORIDE,CL 92 mmol/L (100-110); CREATININE 1.1 mg/dL (0.70-1.30); ESTIMATED GFR 78 mL/min (>60); MAGNESIUM 1.5 mg/dL (1.8-2.5); POTASSIUM,K 4.6 mmol/L (3.5-5.3); PROTEIN TOTAL,TP 7.8 g/dL (6.0-8.0); SODIUM,NA 127 mmol/L (135-145)
[2023-01-12 14:49] LABS: INR 1.09 (1.00-1.24); PROTHROMBIN TIME 11.2 sec (9.0-11.1); PTT,PARTIAL THROMBOPLSTIN TIME 30.5 SECONDS (24.4-33.2)
[2023-01-12 14:52] LABS: HEMOGLOBIN A1C 11.1 % (<5.7)
[2023-01-12 14:57] LABS: GLUCOSE RANDOM 422 mg/dL (80-116)
[2023-01-12 15:04] LABS: PRO B-TYPE NATRIUR PEPT,BNPPRO 202 pg/mL (<=125); TROPONIN I 5.5 pg/mL (4.0-60.3); TSH ULTRASENSITIVE 5.97 IU/mL (0.36-3.74)
[2023-01-12 15:32] LABS: ETHANOL BLOOD MEDICAL < 0.03 % (<0.03)
== END 2023-01-12 17:32 | disposition home or self-care (01) ==
LOC: FB.ED 13:17
DX: E11.9 Type 2 diabetes mellitus without complications (principal); I10 Essential (primary) hypertension; E66.9 Obesity, unspecified; Z79.84 Long term (current) use of oral hypoglycemic drugs
CPT/HCPCS: 36415; 71045; 80053; 80307; 82947; 83036; 83735; 83880; 84443; 84484; 85025; 85610; 85730; 93005; 96360; 99284-25; J1815; J7030

== ENCOUNTER 2023-01-19 14:33 | Emergency (ER) | payer MEDICAID ==
[2023-01-19] MEDS ORDERED: Sodium Chloride 0.9% 1,000 ML IV ONE (14:38)
[2023-01-19 14:59] LABS: BASOPHILS PERCENT AUTO 0.6 % (0.3-3.8); EOSINOPHILS ABSOLUTE AUTO 0.2 x10-3/uL (0.0-0.6); EOSINOPHILS PERCENT AUTO 2.8 % (0.1-6.8); HEMATOCRIT 38.7 % (38.3-50.1); LYMPHOCYTES ABSOLUTE AUTO 1.8 x10-3/uL (0.5-4.5); LYMPHOCYTES PERCENT AUTO 31.5 % (15.8-45.3); MEAN CORPUSCULAR HEMOGLOBIN 30.6 pg (27.0-33.3); MEAN CORPUSCULAR HGB CONC 33.7 g/dL (28.7-35.3); MEAN CORPUSCULAR VOLUME 90.9 fL (80.8-98.7); MEAN PLATELET VOLUME 9.8 fL (6.7-11.0); MONOCYTES ABSOLUTE AUTO 0.7 x10-3/uL (0.0-1.2); MONOCYTES PERCENT AUTO 11.7 % (5.5-15.2); NEUTROPHILS PERCENT AUTO 53.4 % (40.3-71.8); PLATELET COUNT,PLT 225 x10(3)uL (117-477); RED BLOOD CELL COUNT 4.25 x10(6)uL (3.90-5.90); RED CELL DISTRIBUTION WIDTH 13.6 % (12.4-15.0); WHITE BLOOD CELL COUNT,WBC 5.6 x10-3/uL (3.2-10.1)
[2023-01-19 15:08] LABS: A/G RATIO 0.8; ALANINE AMINOTRANSFERASE,ALT 31 U/L (12-36); ALBUMIN 3.5 g/dL (3.5-5.2); ALKALINE PHOSPHATASE 91 IU/L (56-112); ASPARTATE AMNIOTRANSFERASE,AST 20 IU/L (5-25); BILIRUBIN TOTAL 0.6 mg/dL (0.1-1.3); BLOOD UREA NITROGEN,BUN 35 mg/dL (7-18); BUN/CREATININE RATIO 23.3 (9-20); CALCIUM 9.7 mg/dL (8.6-10.2); CARBON DIOXIDE,CO2 26 mmol/L (21-32); CHLORIDE,CL 90 mmol/L (100-110); CREATININE 1.5 mg/dL (0.70-1.30); ESTIMATED GFR 54 mL/min (>60); MAGNESIUM 1.4 mg/dL (1.8-2.5); POTASSIUM,K 4.5 mmol/L (3.5-5.3); PROTEIN TOTAL,TP 7.9 g/dL (6.0-8.0); SODIUM,NA 127 mmol/L (135-145)
[2023-01-19 15:10] LABS: TROPONIN I 6.2 pg/mL (4.0-60.3)
[2023-01-19 15:13] LABS: C-REACTIVE PROTEIN 9.5 mg/dL (<0.33); GLUCOSE RANDOM 473 mg/dL (80-116)
[2023-01-19] MEDS ORDERED: Iopamidol 755 Mg/ML 100 ML Bottle IV SCH (16:00)
[2023-01-19] MEDS ORDERED: Acetaminophen 325 MG Tab PO ONE (16:44)
[2023-01-19 17:04] LABS: BILIRUBIN,URINE NEGATIVE (NEGATIVE); GLUCOSE,URINE >1000 mg/dL (NORMAL); KETONES,URINE NEGATIVE (NEGATIVE); LEUKOCYTE ESTERASE,URINE NEGATIVE (NEGATIVE); NITRITE,URINE NEGATIVE (NEGATIVE); OCCULT BLOOD,URINE NEGATIVE (NEGATIVE); PROTEIN,URINE NEGATIVE (NEGATIVE); UROBILINOGEN,URINE NORMAL (NEGATIVE)
[2023-01-19 17:47] LABS: APPEARANCE,URINE CLEAR (CLEAR); BACTERIA,URINE FEW (NS); COLOR,URINE YELLOW (YELLOW); RBC,URINE 0-5 (0-5); SQUAMOUS EPITHELIAL CELLS,UR FEW (NS,R,O); WBC,URINE 0-5 (0-5)
[2023-01-19] MEDS ORDERED: Glucagon,Human Recombinant 1 MG Vial IM PRN (18:15)
[2023-01-19] MEDS ORDERED: 50% Dextrose in Water 50 ML Syringe IVPUSH PRN (18:15)
[2023-01-19] MEDS ORDERED: Insulin Glargine,Human Rec. Analog 100 Units/ML 3 ML Pen SUBCUT SCH ×2 (18:33→21:00)
== END 2023-01-19 19:36 | disposition home or self-care (01) ==
LOC: FB.ED 14:33
DX: U07.1 COVID-19 (principal); E11.65 Type 2 diabetes mellitus with hyperglycemia; E86.0 Dehydration; R79.82 Elevated C-reactive protein (CRP); N17.9 Acute kidney failure, unspecified; E83.42 Hypomagnesemia; I10 Essential (primary) hypertension; E66.9 Obesity, unspecified; Z79.84 Long term (current) use of oral hypoglycemic drugs; Z79.899 Other long term (current) drug therapy; Z68.34 Body mass index [BMI] 34.0-34.9, adult
CPT/HCPCS: 36415; 71275; 80053; 81001; 83735; 84484; 85025; 86140; 96361; 96365; 99284; 99285-25; A9270-GY; J1815-GY; J3475; J3490; J7030; Q9967

== ENCOUNTER 2023-04-06 03:30 | Observation (INO) | payer MEDICAID ==
[2023-04-06] MEDS ORDERED: Ondansetron 4 MG/2 ML SDV IVPUSH ONE (04:08)
[2023-04-06] MEDS ORDERED: Sodium Chloride 0.9% 1,000 ML IV ONE ×2 (04:08→04:36)
[2023-04-06 04:18] LABS: HEMATOCRIT 39.6 % (38.3-50.1); HEMOGLOBIN 13.7 g/dL (12.9-17.7); LYMPHOCYTES ABSOLUTE AUTO 1.5 x10-3/uL (0.5-4.5); LYMPHOCYTES PERCENT AUTO 35.7 % (15.8-45.3); MEAN CORPUSCULAR HGB CONC 34.7 g/dL (28.7-35.3); MEAN CORPUSCULAR VOLUME 83.7 fL (80.8-98.7); MEAN PLATELET VOLUME 8.1 fL (6.7-11.0); MONOCYTES ABSOLUTE AUTO 0.5 x10-3/uL (0.0-1.2); MONOCYTES PERCENT AUTO 10.9 % (5.5-15.2); NEUTROPHILS ABSOLUTE AUTO 2.2 x10-3/uL (1.7-6.9); NEUTROPHILS PERCENT AUTO 52.4 % (40.3-71.8); PLATELET COUNT,PLT 119 x10(3)uL (117-477); RED BLOOD CELL COUNT 4.73 x10(6)uL (3.90-5.90); RED CELL DISTRIBUTION WIDTH 16.1 % (12.4-15.0); WHITE BLOOD CELL COUNT,WBC 4.2 x10-3/uL (3.2-10.1)
[2023-04-06 04:19] LABS: BLOOD UREA NITROGEN,BUN 13 mg/dL (7-18); CALCIUM 9.3 mg/dL (8.6-10.2); CARBON DIOXIDE,CO2 21 mmol/L (21-32); CHLORIDE,CL 92 mmol/L (100-110); EST CRCL DRUG DOSING (CG) 84.15 mL/min; ESTIMATED GFR 88 mL/min (>60); GLUCOSE RANDOM 167 mg/dL (80-116); POTASSIUM,K 4.1 mmol/L (3.5-5.3); SODIUM,NA 131 mmol/L (135-145)
[2023-04-06 04:20] LABS: LIPASE 10 U/L (16-77)
[2023-04-06 04:25] LABS: A/G RATIO 0.9; ALANINE AMINOTRANSFERASE,ALT 118 U/L (12-36); ALBUMIN 3.4 g/dL (3.5-5.2); ALKALINE PHOSPHATASE 130 IU/L (56-112); ASPARTATE AMNIOTRANSFERASE,AST 95 IU/L (5-25); BILIRUBIN TOTAL 1.3 mg/dL (0.1-1.3); MAGNESIUM 1.5 mg/dL (1.8-2.5); PROTEIN TOTAL,TP 7.3 g/dL (6.0-8.0)
[2023-04-06 04:27] LABS: ETHANOL BLOOD MEDICAL < 0.03 % (<0.03)
[2023-04-06 04:36] LABS: BASE EXCESS VENOUS,POC 0 mmol/L (-2 - 3+); PCO2 VENOUS,POC 27 mmHg (41-51); PH VENOUS,POC 7.51 pH Units (7.32-7.43)
[2023-04-06] MEDS ORDERED: Morphine 4 MG/ML VIAL IVPUSH ONE (04:36)
[2023-04-06] MEDS ORDERED: LORazepam 2 MG/ML SDV IVPUSH ONE (04:36)
[2023-04-06] MEDS ORDERED: Iopamidol 755 Mg/ML 100 ML Bottle IV SCH (05:30)
[2023-04-06] MEDS ORDERED: Ondansetron 4 MG/2 ML SDV IV PRN (06:27)
[2023-04-06] MEDS ORDERED: Folic Acid 50 MG/10 ML MDV SUBCUT ONE (06:30)
[2023-04-06] MEDS ORDERED: LORazepam 1 MG Tab PO SCH (06:30)
[2023-04-06] MEDS ORDERED: Magnesium Sulfate/Water 2 GM in Premix Bag 1 BAG IV ONE (06:30)
[2023-04-06] MEDS ORDERED: LORazepam 2 MG/ML SDV IV SCH (06:30)
[2023-04-06] MEDS ORDERED: Pantoprazole 40 MG Vial IVPUSH SCH (06:30)
[2023-04-06] MEDS: Sodium Chloride 0.9% 1,000 ML IV SCH ×2 (07:10→19:54)
[2023-04-06 07:29] LABS: BILIRUBIN,URINE SMALL (NEGATIVE); GLUCOSE,URINE NORMAL (NORMAL); KETONES,URINE 50 mg/dL (NEGATIVE); LEUKOCYTE ESTERASE,URINE NEGATIVE (NEGATIVE); NITRITE,URINE NEGATIVE (NEGATIVE); OCCULT BLOOD,URINE NEGATIVE (NEGATIVE); PROTEIN,URINE NEGATIVE (NEGATIVE); UROBILINOGEN,URINE 1 mg/dL (NEGATIVE)
[2023-04-06 07:34] LABS: APPEARANCE,URINE CLEAR (CLEAR); BACTERIA,URINE FEW (NS); COLOR,URINE YELLOW (YELLOW); SQUAMOUS EPITHELIAL CELLS,UR FEW (NS,R,O); WBC,URINE 0-5 (0-5)
[2023-04-06 07:36] LABS: AMPHETAMINES SCREEN, URINE NEGATIVE (NEGATIVE); BARBITURATE SCREEN,URINE NEGATIVE (NEGATIVE); BENZODIAZEPINES SCREEN,URINE NEGATIVE (NEGATIVE); METHADONE SCREEN, URINE NEGATIVE (NEGATIVE); METHAMPHETAMINE SCREEN, URINE NEGATIVE (NEGATIVE); OXYCODONE SCREEN,URINE NEGATIVE (NEGATIVE); THC SCREEN,URINE NEGATIVE (NEGATIVE)
[2023-04-06 07:37] LABS: BUPRENORPHINE SCREEN,URINE NEGATIVE (NEGATIVE)
[2023-04-06] MEDS: Ampicillin/Sulbactam Na 3 GM in Sodium Chloride 0.9% 100 ML IV SCH ×3 (08:51→18:07)
[2023-04-06] MEDS ORDERED: Amylase/Lipase/Protease 5,000 Unit Cap.CR PO PRN (08:55)
[2023-04-06] MEDS ORDERED: Thiamine 200 MG/2 ML MDV IV SCH (09:00)
[2023-04-06] MEDS ORDERED: Thiamine 100 MG in Sodium Chloride 0.9% 50 ML IV SCH (09:00)
[2023-04-06] MEDS ORDERED: Magnesium Oxide 400 MG Tab PO SCH (09:00)
[2023-04-06] MEDS: Sodium Chloride 0.9% 10 ML Syringe FLUSH PRN (09:08)
[2023-04-06] MEDS: glipiZIDE 5 MG Tab PO SCH (09:40)
[2023-04-06] MEDS: Gabapentin 100 MG Cap PO SCH ×3 (09:40→20:03)
[2023-04-06] MEDS: Pantoprazole 40 MG Tab.CR PO SCH ×2 (09:41→20:03)
[2023-04-06] MEDS: Multivitamin Tab PO SCH (09:41)
[2023-04-06] MEDS: Aspirin 81 MG Tab.EC PO SCH (09:41)
[2023-04-06] MEDS ORDERED: AMYLASE PO PRN (10:00)
[2023-04-06] MEDS ORDERED: [UNRECOGNIZED DRUG - OTHER] PO PRN (10:00)
[2023-04-06] MEDS ORDERED: PROTEASE PO PRN (10:00)
[2023-04-06] MEDS: Doxycycline 100 MG in Sodium Chloride 0.9% 100 ML IV SCH ×2 (11:14→20:13)
[2023-04-06] MEDS: PROTEASE PO SCH ×3 (11:39→20:04)
[2023-04-06] MEDS: AMYLASE PO SCH ×3 (11:39→20:04)
[2023-04-06] MEDS: [UNRECOGNIZED DRUG - OTHER] PO SCH ×3 (11:39→20:04)
[2023-04-06] MEDS: Ibuprofen 200 MG Tab PO PRN (11:52)
[2023-04-06] MEDS: traMADol 50 MG Tab PO PRN ×2 (13:27→20:02)
[2023-04-07] MEDS: Ampicillin/Sulbactam Na 3 GM in Sodium Chloride 0.9% 100 ML IV SCH ×2 (00:31→06:29)
[2023-04-07] MEDS: Ibuprofen 200 MG Tab PO PRN (03:17)
[2023-04-07] MEDS: Sodium Chloride 0.9% 1,000 ML IV SCH (06:28)
[2023-04-07 06:32] LABS: EOSINOPHILS PERCENT AUTO 0.3 % (0.1-6.8); HEMATOCRIT 33.6 % (38.3-50.1); HEMOGLOBIN 11.5 g/dL (12.9-17.7); LYMPHOCYTES ABSOLUTE AUTO 1.4 x10-3/uL (0.5-4.5); LYMPHOCYTES PERCENT AUTO 46.8 % (15.8-45.3); MEAN CORPUSCULAR HGB CONC 34.2 g/dL (28.7-35.3); MEAN CORPUSCULAR VOLUME 84.8 fL (80.8-98.7); MEAN PLATELET VOLUME 8.1 fL (6.7-11.0); MONOCYTES ABSOLUTE AUTO 0.3 x10-3/uL (0.0-1.2); MONOCYTES PERCENT AUTO 9.7 % (5.5-15.2); NEUTROPHILS ABSOLUTE AUTO 1.2 x10-3/uL (1.7-6.9); NEUTROPHILS PERCENT AUTO 42.2 % (40.3-71.8); PLATELET COUNT,PLT 86 x10(3)uL (117-477); RED BLOOD CELL COUNT 3.96 x10(6)uL (3.90-5.90); RED CELL DISTRIBUTION WIDTH 16.2 % (12.4-15.0); WHITE BLOOD CELL COUNT,WBC 2.9 x10-3/uL (3.2-10.1)
[2023-04-07] MEDS: [UNRECOGNIZED DRUG - OTHER] PO SCH ×3 (06:35→17:10)
[2023-04-07] MEDS: AMYLASE PO SCH ×3 (06:35→17:10)
[2023-04-07] MEDS: PROTEASE PO SCH ×3 (06:35→17:10)
[2023-04-07] MEDS: traMADol 50 MG Tab PO PRN (06:41)
[2023-04-07 06:48] LABS: A/G RATIO 0.8; ALANINE AMINOTRANSFERASE,ALT 76 U/L (12-36); ALBUMIN 2.7 g/dL (3.5-5.2); ALKALINE PHOSPHATASE 93 IU/L (56-112); ASPARTATE AMNIOTRANSFERASE,AST 59 IU/L (5-25); BILIRUBIN TOTAL 1.2 mg/dL (0.1-1.3); BLOOD UREA NITROGEN,BUN 10 mg/dL (7-18); CALCIUM 8.3 mg/dL (8.6-10.2); CARBON DIOXIDE,CO2 30 mmol/L (21-32); CHLORIDE,CL 94 mmol/L (100-110); EST CRCL DRUG DOSING (CG) 84.15 mL/min; ESTIMATED GFR 88 mL/min (>60); GLUCOSE RANDOM 133 mg/dL (80-116); POTASSIUM,K 3.8 mmol/L (3.5-5.3); SODIUM,NA 128 mmol/L (135-145)
[2023-04-07] MEDS: Gabapentin 100 MG Cap PO SCH ×2 (08:30→13:37)
[2023-04-07] MEDS: Pantoprazole 40 MG Tab.CR PO SCH (08:31)
[2023-04-07] MEDS: Multivitamin Tab PO SCH (08:31)
[2023-04-07] MEDS: glipiZIDE 5 MG Tab PO SCH (08:31)
[2023-04-07] MEDS: Aspirin 81 MG Tab.EC PO SCH (08:31)
[2023-04-07] MEDS: Sodium Chloride 0.9% 10 ML Syringe FLUSH PRN (08:38)
[2023-04-07] MEDS: Doxycycline 100 MG in Sodium Chloride 0.9% 100 ML IV SCH (08:44)
[2023-04-07] MEDS ORDERED: Thiamine 100 MG Tab PO SCH (09:00)
[2023-04-08] MEDS ORDERED: metFORMIN 500 MG Tab.ER PO SCH (09:00)
== END 2023-04-07 18:50 | disposition home or self-care (01) ==
LOC: FB.ED 03:30 → FB.MS 06:12
PROVIDERS: ADMIT Emergency Medicine; ATTEND Family Medicine
DX: J18.9 Pneumonia, unspecified organism (principal); J96.01 Acute respiratory failure with hypoxia; E11.40 Type 2 diabetes mellitus with diabetic neuropathy, unspecified; E11.65 Type 2 diabetes mellitus with hyperglycemia; I10 Essential (primary) hypertension; F10.239 Alcohol dependence with withdrawal, unspecified; F19.10 Other psychoactive substance abuse, uncomplicated; E78.00 Pure hypercholesterolemia, unspecified; K21.9 Gastro-esophageal reflux disease without esophagitis; E86.0 Dehydration; N17.9 Acute kidney failure, unspecified; E66.9 Obesity, unspecified; K70.10 Alcoholic hepatitis without ascites; Z20.822 Contact with and (suspected) exposure to COVID-19; Z79.82 Long term (current) use of aspirin; Z79.84 Long term (current) use of oral hypoglycemic drugs; Z79.899 Other long term (current) drug therapy
CPT/HCPCS: 36415; 71045; 74177; 80053; 80307; 81001; 82947; 83605; 83690; 83735; 85025; 86140; 87040; 99285; A9270-GY; C9113; J0295; J2060; J2270; J2405; J3411; J3475; J3490; J7030; Q9967; U0002

== ENCOUNTER 2023-05-02 02:44 | Emergency (ER) | payer MEDICAID ==
[2023-05-02] MEDS ORDERED: Sodium Chloride 0.9% 10 ML Syringe FLUSH PRN (03:06)
[2023-05-02] MEDS: HYDROmorphone 2 MG/ML SDV IVPUSH PRN (03:22)
[2023-05-02] MEDS: Ondansetron 4 MG/2 ML SDV IVPUSH ONE ×3 (03:22→09:53)
[2023-05-02] MEDS: Thiamine 200 MG/2 ML MDV IVPUSH ONE (03:23)
[2023-05-02] MEDS: Sodium Chloride 0.9% 1,000 ML IV SCH (03:23)
[2023-05-02 03:29] LABS: BLOOD UREA NITROGEN,BUN 12 mg/dL (7-18); BUN/CREATININE RATIO 13.3 (9-20); CARBON DIOXIDE,CO2 27 mmol/L (21-32); CHLORIDE,CL 96 mmol/L (100-110); CREATININE 0.9 mg/dL (0.70-1.30); ESTIMATED GFR 100 mL/min (>60); GLUCOSE RANDOM 114 mg/dL (80-116); POTASSIUM,K 3.9 mmol/L (3.5-5.3); SODIUM,NA 137 mmol/L (135-145)
[2023-05-02 03:35] LABS: HEMATOCRIT 38.5 % (38.3-50.1); MEAN CORPUSCULAR HEMOGLOBIN 29.7 pg (27.0-33.3); MEAN CORPUSCULAR HGB CONC 33.8 g/dL (28.7-35.3); MEAN CORPUSCULAR VOLUME 87.8 fL (80.8-98.7); PLATELET COUNT,PLT 76 x10(3)uL (117-477); RED BLOOD CELL COUNT 4.38 x10(6)uL (3.90-5.90); RED CELL DISTRIBUTION WIDTH 19.1 % (12.4-15.0); WHITE BLOOD CELL COUNT,WBC 3.1 x10-3/uL (3.2-10.1)
[2023-05-02 03:39] LABS: A/G RATIO 0.8; ALANINE AMINOTRANSFERASE,ALT 100 U/L (12-36); ALBUMIN 3.3 g/dL (3.5-5.2); ALKALINE PHOSPHATASE 121 IU/L (56-112); PROTEIN TOTAL,TP 7.5 g/dL (6.0-8.0)
[2023-05-02 03:54] LABS: ASPARTATE AMNIOTRANSFERASE,AST 195 IU/L (5-25)
[2023-05-02 04:06] LABS: LYMPHOCYTES PERCENT MAN 52 % (13-37); MONOCYTES PERCENT MAN 10 % (4-12); SEG NEUTROPHILS PERCENT MAN 38 % (46-82)
[2023-05-02] MEDS: Iopamidol 755 Mg/ML 100 ML Bottle IV ONE (04:27)
[2023-05-02] MEDS: Ketorolac 30 MG/ML SDV IVPUSH ONE (06:44)
[2023-05-02] MEDS: Dextrose 5%-0.9% NaCl 1,000 ML IV SCH (07:55)
[2023-05-02] MEDS: Alum Hydroxide/Mag Hydroxide 30 ML, Lidocaine 2% 30 ML PO ONE (08:01)
[2023-05-02] MEDS: Pantoprazole 40 MG Vial IVPUSH ONE (08:01)
[2023-05-02] MEDS: Prochlorperazine 10 MG in Sodium Chloride 0.9% 50 ML IV PRN (08:01)
[2023-05-02] MEDS: LORazepam 2 MG/ML SDV IVPUSH ONE (09:52)
== END 2023-05-02 10:20 | disposition home or self-care (01) ==
LOC: FB.ED 02:44
DX: K29.20 Alcoholic gastritis without bleeding (principal); F10.20 Alcohol dependence, uncomplicated; I10 Essential (primary) hypertension; K21.9 Gastro-esophageal reflux disease without esophagitis; E11.40 Type 2 diabetes mellitus with diabetic neuropathy, unspecified; Z86.16 Personal history of COVID-19; Z79.82 Long term (current) use of aspirin; Z79.84 Long term (current) use of oral hypoglycemic drugs; Z79.899 Other long term (current) drug therapy
CPT/HCPCS: 36415; 74177; 80053; 82150; 83690; 84484; 85025; 96361; 96365; 96375; 96376; 99284; 99284-25; A9270-GY; C9113; J0780; J1170; J1885; J2060; J2405; J3411; J3490; J7030; Q9967

== ENCOUNTER 2023-07-24 20:28 | Emergency (ER) | payer OTHER ==
[2023-07-24] MEDS ORDERED: Ondansetron 4 MG Tab.DIS PO ONE (20:29)
[2023-07-24 22:49] LABS: BASOPHILS PERCENT AUTO 0.5 % (0.3-3.8); EOSINOPHILS PERCENT AUTO 0.7 % (0.1-6.8); HEMATOCRIT 39.2 % (38.3-50.1); HEMOGLOBIN 13.1 g/dL (12.9-17.7); LYMPHOCYTES ABSOLUTE AUTO 1.5 x10-3/uL (0.5-4.5); LYMPHOCYTES PERCENT AUTO 44.3 % (15.8-45.3); MEAN CORPUSCULAR HEMOGLOBIN 32.2 pg (27.0-33.3); MEAN CORPUSCULAR HGB CONC 33.4 g/dL (28.7-35.3); MEAN CORPUSCULAR VOLUME 96.5 fL (80.8-98.7); MEAN PLATELET VOLUME 8.2 fL (6.7-11.0); MONOCYTES ABSOLUTE AUTO 0.2 x10-3/uL (0.0-1.2); MONOCYTES PERCENT AUTO 6.8 % (5.5-15.2); NEUTROPHILS ABSOLUTE AUTO 1.6 x10-3/uL (1.7-6.9); NEUTROPHILS PERCENT AUTO 47.7 % (40.3-71.8); PLATELET COUNT,PLT 58 x10(3)uL (117-477); RED BLOOD CELL COUNT 4.06 x10(6)uL (3.90-5.90); RED CELL DISTRIBUTION WIDTH 17.3 % (12.4-15.0); WHITE BLOOD CELL COUNT,WBC 3.4 x10-3/uL (3.2-10.1)
[2023-07-24] MEDS: Sodium Chloride 0.9% 1,000 ML IV ONE (22:49)
[2023-07-24] MEDS: Ondansetron 4 MG/2 ML SDV IVPUSH ONE (22:49)
[2023-07-24 22:55] LABS: BLOOD UREA NITROGEN,BUN 11 mg/dL (7-18); BUN/CREATININE RATIO 12.2 (9-20); CALCIUM 8.9 mg/dL (8.6-10.2); CARBON DIOXIDE,CO2 22 mmol/L (21-32); CHLORIDE,CL 98 mmol/L (100-110); CREATININE 0.9 mg/dL (0.70-1.30); ESTIMATED GFR 100 mL/min (>60); GLUCOSE RANDOM 91 mg/dL (80-116); POTASSIUM,K 4.8 mmol/L (3.5-5.3); SODIUM,NA 141 mmol/L (135-145)
[2023-07-24 22:59] LABS: C-REACTIVE PROTEIN 3.19 mg/dL (<0.50)
[2023-07-24 23:06] LABS: A/G RATIO 0.8; ALANINE AMINOTRANSFERASE,ALT 124 U/L (12-36); ALBUMIN 3.3 g/dL (3.5-5.2); ALKALINE PHOSPHATASE 115 IU/L (56-112); BILIRUBIN TOTAL 1.2 mg/dL (0.1-1.3); PROTEIN TOTAL,TP 7.6 g/dL (6.0-8.0)
[2023-07-24 23:09] LABS: INR 1.03 (1.00-1.24); PROTHROMBIN TIME 10.7 sec (9.0-11.1)
[2023-07-24 23:14] LABS: ASPARTATE AMNIOTRANSFERASE,AST 215 IU/L (5-25)
[2023-07-24] MEDS: LORazepam 2 MG/ML SDV IVPUSH ONE (23:57)
[2023-07-24] MEDS: Alum Hydroxide/Mag Hydroxide 30 ML, Lidocaine 2% 15 ML PO ONE (23:57)
[2023-07-25] MEDS: Morphine 4 MG/ML VIAL IVPUSH ONE (00:26)
== END 2023-07-25 01:03 | disposition home or self-care (01) ==
LOC: FB.ED 20:28
DX: K70.10 Alcoholic hepatitis without ascites (principal); F10.10 Alcohol abuse, uncomplicated; R79.82 Elevated C-reactive protein (CRP); E88.09 Other disorders of plasma-protein metabolism, not elsewhere classified; E86.0 Dehydration; D69.6 Thrombocytopenia, unspecified; I10 Essential (primary) hypertension; E78.00 Pure hypercholesterolemia, unspecified; E11.9 Type 2 diabetes mellitus without complications; K21.9 Gastro-esophageal reflux disease without esophagitis; F17.200 Nicotine dependence, unspecified, uncomplicated; Z86.16 Personal history of COVID-19; Z79.82 Long term (current) use of aspirin; Z79.899 Other long term (current) drug therapy; Z79.84 Long term (current) use of oral hypoglycemic drugs; Y90.9 Presence of alcohol in blood, level not specified
CPT/HCPCS: 80053; 83690; 85025; 85610; 86140; 96361; 96374; 96375; 99285; A9270; J2060; J2405; J7030; Q0162; 36415; 99284

== ENCOUNTER 2023-09-23 07:30 | Emergency (ER) | payer MEDICAID, OTHER ==
[2023-09-23] MEDS: Sodium Chloride 0.9% 1,000 ML IV ONE (08:29)
[2023-09-23 08:30] LABS: BASOPHILS PERCENT AUTO 0.4 % (0.3-3.8); EOSINOPHILS PERCENT AUTO 0.2 % (0.1-6.8); HEMATOCRIT 37.7 % (38.3-50.1); HEMOGLOBIN 12.6 g/dL (12.9-17.7); LYMPHOCYTES ABSOLUTE AUTO 1.5 x10-3/uL (0.5-4.5); LYMPHOCYTES PERCENT AUTO 31.9 % (15.8-45.3); MEAN CORPUSCULAR HEMOGLOBIN 31.4 pg (27.0-33.3); MEAN CORPUSCULAR HGB CONC 33.5 g/dL (28.7-35.3); MEAN CORPUSCULAR VOLUME 93.8 fL (80.8-98.7); MEAN PLATELET VOLUME 8.3 fL (6.7-11.0); MONOCYTES ABSOLUTE AUTO 0.4 x10-3/uL (0.0-1.2); NEUTROPHILS ABSOLUTE AUTO 2.8 x10-3/uL (1.7-6.9); NEUTROPHILS PERCENT AUTO 59.5 % (40.3-71.8); PLATELET COUNT,PLT 216 x10(3)uL (117-477); RED BLOOD CELL COUNT 4.02 x10(6)uL (3.90-5.90); RED CELL DISTRIBUTION WIDTH 14.1 % (12.4-15.0); WHITE BLOOD CELL COUNT,WBC 4.8 x10-3/uL (3.2-10.1)
[2023-09-23 08:37] LABS: BLOOD UREA NITROGEN,BUN 13 mg/dL (7-18); CALCIUM 8.8 mg/dL (8.6-10.2); CARBON DIOXIDE,CO2 26 mmol/L (21-32); CHLORIDE,CL 103 mmol/L (100-110); EST CRCL DRUG DOSING (CG) 84.15 mL/min; ESTIMATED GFR 88 mL/min (>60); GLUCOSE RANDOM 142 mg/dL (80-116); POTASSIUM,K 4.5 mmol/L (3.5-5.3); SODIUM,NA 140 mmol/L (135-145)
[2023-09-23] MEDS: LORazepam 2 MG/ML SDV IVPUSH ONE ×2 (08:37→09:25)
[2023-09-23] MEDS: Ondansetron 4 MG/2 ML SDV IVPUSH ONE (08:40)
[2023-09-23 08:42] LABS: ALANINE AMINOTRANSFERASE,ALT 23 U/L (12-36); ALBUMIN 3.6 g/dL (3.5-5.2); ALKALINE PHOSPHATASE 75 IU/L (56-112); ASPARTATE AMNIOTRANSFERASE,AST 25 IU/L (5-25); BILIRUBIN TOTAL 0.9 mg/dL (0.1-1.3); MAGNESIUM 1.3 mg/dL (1.8-2.5); PROTEIN TOTAL,TP 7.4 g/dL (6.0-8.0)
[2023-09-23 08:44] LABS: TROPONIN I 16.1 pg/mL (4.0-60.3)
[2023-09-23 08:56] LABS: ETHANOL BLOOD MEDICAL < 0.03 % (<0.03)
[2023-09-23] MEDS: Magnesium Sulfate/Water 2 GM in Premix Bag 1 BAG IV ONE (09:16)
[2023-09-23] MEDS: Sodium Chloride 0.9% 1,000 ML IV SCH (09:53)
[2023-09-23] MEDS: Acetaminophen 500 MG Tab PO ONE (11:44)
[2023-09-23 12:24] VITALS: BP 177/102; PULSE 72
== END 2023-09-23 12:53 | disposition home or self-care (01) ==
LOC: FB.ED 07:30
DX: R07.89 Other chest pain (principal); E86.0 Dehydration; F10.139 Alcohol abuse with withdrawal, unspecified; E83.42 Hypomagnesemia; I10 Essential (primary) hypertension; E78.00 Pure hypercholesterolemia, unspecified; K21.9 Gastro-esophageal reflux disease without esophagitis; E11.40 Type 2 diabetes mellitus with diabetic neuropathy, unspecified; E66.9 Obesity, unspecified; Z86.16 Personal history of COVID-19; Z79.02 Long term (current) use of antithrombotics/antiplatelets; Z79.899 Other long term (current) drug therapy; Z79.84 Long term (current) use of oral hypoglycemic drugs; Y90.0 Blood alcohol level of less than 20 mg/100 ml; Z68.33 Body mass index [BMI] 33.0-33.9, adult
CPT/HCPCS: 36415; 80053; 80307; 83690; 83735; 84484; 85025; 93005; 93010; 96361; 96365; 96375; 96376; 99284; 99285-25; A9270-GY; J2060; J2405; J3475; J7030

== ENCOUNTER 2023-12-22 08:04 | Emergency (ER) | payer MEDICAID, OTHER ==
[2023-12-22 08:54] LABS: BASOPHILS PERCENT AUTO 0.3 % (0.3-3.8); EOSINOPHILS PERCENT AUTO 0.2 % (0.1-6.8); HEMATOCRIT 48.8 % (38.3-50.1); HEMOGLOBIN 16.4 g/dL (12.9-17.7); LYMPHOCYTES ABSOLUTE AUTO 1.9 x10-3/uL (0.5-4.5); LYMPHOCYTES PERCENT AUTO 29.4 % (15.8-45.3); MEAN CORPUSCULAR HEMOGLOBIN 30.8 pg (27.0-33.3); MEAN CORPUSCULAR HGB CONC 33.7 g/dL (28.7-35.3); MEAN CORPUSCULAR VOLUME 91.5 fL (80.8-98.7); MEAN PLATELET VOLUME 8.6 fL (6.7-11.0); MONOCYTES ABSOLUTE AUTO 0.6 x10-3/uL (0.0-1.2); MONOCYTES PERCENT AUTO 9.6 % (5.5-15.2); NEUTROPHILS ABSOLUTE AUTO 3.9 x10-3/uL (1.7-6.9); NEUTROPHILS PERCENT AUTO 60.5 % (40.3-71.8); PLATELET COUNT,PLT 130 x10(3)uL (117-477); WHITE BLOOD CELL COUNT,WBC 6.5 x10-3/uL (3.2-10.1)
[2023-12-22] MEDS: Ondansetron 4 MG/2 ML SDV IVPUSH ONE ×2 (08:59→12:03)
[2023-12-22] MEDS: Sodium Chloride 0.9% 1,000 ML IV SCH ×2 (08:59→10:07)
[2023-12-22] MEDS: Morphine 2 MG/ML SYRINGE IVPUSH ONE ×2 (08:59→12:03)
[2023-12-22] MEDS ORDERED: Aspirin 81 MG Tab.EC PO SCH (09:00)
[2023-12-22] MEDS ORDERED: Gabapentin 100 MG Cap PO SCH ×2 (09:00)
[2023-12-22] MEDS: LORazepam 2 MG/ML SDV IVPUSH ONE (09:00)
[2023-12-22 09:03] LABS: RED BLOOD CELL COUNT 5.34 x10(6)uL (3.90-5.90)
[2023-12-22 09:04] LABS: A/G RATIO 1.1; ALANINE AMINOTRANSFERASE,ALT 77 U/L (12-36); ALBUMIN 4.9 g/dL (3.5-5.2); ALKALINE PHOSPHATASE 91 IU/L (56-112); ASPARTATE AMNIOTRANSFERASE,AST 91 IU/L (5-25); BILIRUBIN TOTAL 1.7 mg/dL (0.1-1.3); BLOOD UREA NITROGEN,BUN 21 mg/dL (7-18); BUN/CREATININE RATIO 16.2 (9-20); CARBON DIOXIDE,CO2 27 mmol/L (21-32); CREATININE 1.3 mg/dL (0.70-1.30); ESTIMATED GFR 64 mL/min (>60); GLUCOSE RANDOM 161 mg/dL (80-116); POTASSIUM,K 4.2 mmol/L (3.5-5.3); PROTEIN TOTAL,TP 9.5 g/dL (6.0-8.0); SODIUM,NA 134 mmol/L (135-145)
[2023-12-22 09:05] LABS: CHLORIDE,CL 86 mmol/L (100-110)
[2023-12-22] MEDS: Iopamidol 755 Mg/ML 100 ML Bottle IV SCH (09:05)
[2023-12-22] MEDS: Pantoprazole 40 MG Vial IVPUSH ONE (09:45)
== END 2023-12-22 13:01 | disposition home or self-care (01) ==
LOC: FB.ED 08:04
DX: K29.20 Alcoholic gastritis without bleeding (principal); I10 Essential (primary) hypertension; E78.00 Pure hypercholesterolemia, unspecified; K21.9 Gastro-esophageal reflux disease without esophagitis; E11.9 Type 2 diabetes mellitus without complications; E66.9 Obesity, unspecified; Z86.16 Personal history of COVID-19; Z79.899 Other long term (current) drug therapy; Z79.84 Long term (current) use of oral hypoglycemic drugs
CPT/HCPCS: 36415; 74177; 80053; 80307; 83690; 83735; 85025; 96361; 96374; 96375; 96376; 99284-25; J2060; J2270; J2405; J2470; J7030; Q9967

== ENCOUNTER 2024-03-21 08:46 | Emergency (ER) | payer BC, OTHER ==
[2024-03-21 09:34] LABS: BASOPHILS PERCENT AUTO 1.1 % (0.3-3.8); EOSINOPHILS ABSOLUTE AUTO 0.1 x10-3/uL (0.0-0.6); EOSINOPHILS PERCENT AUTO 1.3 % (0.1-6.8); HEMATOCRIT 36.2 % (38.3-50.1); HEMOGLOBIN 12.7 g/dL (12.9-17.7); LYMPHOCYTES ABSOLUTE AUTO 1.6 x10-3/uL (0.5-4.5); LYMPHOCYTES PERCENT AUTO 41.3 % (15.8-45.3); MEAN CORPUSCULAR HEMOGLOBIN 34.9 pg (27.0-33.3); MEAN CORPUSCULAR HGB CONC 35.2 g/dL (28.7-35.3); MEAN CORPUSCULAR VOLUME 99.1 fL (80.8-98.7); MONOCYTES ABSOLUTE AUTO 0.5 x10-3/uL (0.0-1.2); MONOCYTES PERCENT AUTO 12.3 % (5.5-15.2); NEUTROPHILS ABSOLUTE AUTO 1.7 x10-3/uL (1.7-6.9); PLATELET COUNT,PLT 211 x10(3)uL (117-477); RED BLOOD CELL COUNT 3.65 x10(6)uL (3.90-5.90); RED CELL DISTRIBUTION WIDTH 15.7 % (12.4-15.0); WHITE BLOOD CELL COUNT,WBC 3.8 x10-3/uL (3.2-10.1)
[2024-03-21] MEDS: Ondansetron 4 MG/2 ML SDV IVPUSH ONE ×2 (09:36→11:30)
[2024-03-21 09:41] LABS: BLOOD UREA NITROGEN,BUN 13 mg/dL (7-18); BUN/CREATININE RATIO 14.4 (9-20); CALCIUM 9.4 mg/dL (8.6-10.2); CARBON DIOXIDE,CO2 28 mmol/L (21-32); CHLORIDE,CL 98 mmol/L (100-110); CREATININE 0.9 mg/dL (0.70-1.30); EST CRCL DRUG DOSING (CG) 92.38 mL/min; ESTIMATED GFR 99 mL/min (>60); GLUCOSE RANDOM 209 mg/dL (80-116); POTASSIUM,K 4.4 mmol/L (3.5-5.3); SODIUM,NA 137 mmol/L (135-145)
[2024-03-21 09:47] LABS: ALANINE AMINOTRANSFERASE,ALT 41 U/L (12-36); ALBUMIN 3.5 g/dL (3.5-5.2); ALKALINE PHOSPHATASE 89 IU/L (56-112); ASPARTATE AMNIOTRANSFERASE,AST 40 IU/L (5-25); BILIRUBIN TOTAL 0.6 mg/dL (0.1-1.3); PROTEIN TOTAL,TP 7.1 g/dL (6.0-8.0)
[2024-03-21 09:48] LABS: INR 0.98 (1.00-1.24); PROTHROMBIN TIME 10.2 sec (9.0-11.1); PTT,PARTIAL THROMBOPLSTIN TIME 26.2 SECONDS (24.4-33.2)
[2024-03-21 09:57] LABS: TROPONIN I 6.7 pg/mL (4.0-60.3)
== END 2024-03-21 11:40 | disposition home or self-care (01) ==
LOC: FB.ED 08:46
DX: R10.10 Upper abdominal pain, unspecified (principal); F10.930 Alcohol use, unspecified with withdrawal, uncomplicated; I10 Essential (primary) hypertension; K21.9 Gastro-esophageal reflux disease without esophagitis; E11.42 Type 2 diabetes mellitus with diabetic polyneuropathy; E66.9 Obesity, unspecified; Z68.37 Body mass index [BMI] 37.0-37.9, adult; Z86.16 Personal history of COVID-19; Z79.82 Long term (current) use of aspirin; Z79.84 Long term (current) use of oral hypoglycemic drugs; Z79.899 Other long term (current) drug therapy; Y90.0 Blood alcohol level of less than 20 mg/100 ml
CPT/HCPCS: 36415; 80053; 80307; 83690; 83880; 84484; 85025; 85610; 85730; 93005; 96374; 96375; 96376; 99284; J2405; J3360